=== PATIENT | male | born 1980 | race Caucasian/White ===

== ENCOUNTER 2016-04-30 17:45 | Inpatient (IN) | payer BC ==
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
[2016-04-30] MEDS ORDERED: PIPERACILLIN/TAZOB 3.375 GM/50 ML PRE-DOCKED IV ONE (18:54)
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
[2016-04-30] MEDS ORDERED: PIPERACILLIN/TAZOBACTAM 3.375 GM VIAL IVPB ONE (20:34)
[2016-04-30 20:50] LABS: PH,URINE 6.5 (4.5-8); URINE APPEARANCE Clear; URINE BILIRUBIN Negative (NEGATIVE); URINE GLUCOSE (UA) Negative (NEGATIVE); URINE KETONE Trace (NEGATIVE); URINE LEUK ESTERASE Negative (NEGATIVE); URINE NITRITE Negative (NEGATIVE); URINE UROBILINOGEN 0.2 E.U/dl (0.2-1.0)
[2016-04-30 20:51] LABS: URINE BLOOD 1+ (NEGATIVE); URINE COLOR YELLOW; URINE PROTEIN 1+ (NEGATIVE)
[2016-04-30 21:21] LABS: MCH 27.8 pg (25.7-33.7); MCHC 32.5 g/dl (32.0-35.9); MEAN CELL VOLUME 85.5 fl (80-96); MEAN PLT VOLUME 9.2 fl (7.5-11.1); PLATELET COUNT 272 K/MM3 (134-434); RDW 13.2 % (11.9-15.9); WHITE BLOOD COUNT 14.1 K/mm3 (4.0-10.0)
[2016-04-30 21:25] LABS: URINE BACTERIA FEW /hpf (NEGATIVE); URINE WBC 0-2 (3-5)
[2016-04-30] MEDS ORDERED: SODIUM CHLORIDE 1,000 ML IV STA (21:30)
[2016-04-30 21:31] LABS: ALBUMIN 3.7 g/dl (3.5-5.0); ALK PHOS 92 U/L (32-92); ANION GAP 11 (8-16); BILIRUBIN,TOTAL 0.8 mg/dl (0.2-1.0); CALCIUM 8.8 mg/dl (8.4-10.2); CO2 27 mmol/L (22-28); CREATININE 0.8 mg/dl (0.6-1.3); GLUCOSE,RANDOM 80 mg/dl (74-106); SGOT/AST 34 U/L (10-42); SGPT/ALT 31 U/L (10-40); TOT PROT 8.1 g/dl (6.4-8.3)
[2016-04-30] MEDS ORDERED: VANCOMYCIN 1,000 MG in DEXTROSE 5%-WATER - 250 ML IVPB ONE (21:31)
[2016-04-30] MEDS ORDERED: VANCOMYCIN 1,000 MG VIAL (RESTRICTED TO ID ONLY) ONE (21:39)
[2016-04-30 23:46] VITALS: BMI 42.7
[2016-04-30] MEDS ORDERED: ACETAMINOPHEN 325 MG TABLET (FP) ONE (23:55)
[2016-05-01] MEDS ORDERED: morphine CARPU-JECT 2 MG/1 ML DISP.SYRIN IVPUSH PRN (00:26)
[2016-05-01] MEDS ORDERED: ACETAMINOPHEN 650 MG SUPP.RECT PR PRN (00:26)
[2016-05-01] MEDS ORDERED: DEXTROSE 5%-0.45% SALINE 1,000 ML IV SCH (00:30)
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
[2016-05-01] MEDS: HEPARIN NA (PORCINE) 5,000 UNITS/ML 1ML VIAL SQ SCH ×3 (02:00→18:52)
[2016-05-01 09:02] LABS: BASOPHIL 0.6 % (0-2.0); EOSINOPHIL 0.8 % (0-4.5); MCH 27.5 pg (25.7-33.7); MCHC 31.9 g/dl (32.0-35.9); MEAN CELL VOLUME 86.3 fl (80-96); MEAN PLT VOLUME 8.4 fl (7.5-11.1); NEUTROPHILS 80.4 % (42.8-82.8); PLATELET COUNT 276 K/MM3 (134-434); RDW 13.3 % (11.9-15.9); WHITE BLOOD COUNT 12.9 K/mm3 (4.0-10.0)
[2016-05-01] MEDS: PANTOPRAZOLE 20 MG TABLET (FP) PO SCH ×2 (09:43→21:27)
[2016-05-01] MEDS ORDERED: MUPIROCIN 2% TOPICAL OINTMENT FOR DECOLONIZATION NS SCH ×2 (10:00)
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
[2016-05-01 11:00] LABS: INR 1.19 (0.82-1.09); PROTHROMBIN TIME (PATIENT) 13.3 SEC (10.2-13.0)
[2016-05-01] MEDS ORDERED: GENTAMICIN SO4 80 MG/2 ML VIAL ONE (11:03)
[2016-05-01] MEDS ORDERED: POLYMYXIN B SULFATE 500,000 UNIT VIAL ONE (11:03)
[2016-05-01 11:07] LABS: ACTIVATED PTT 28.2 SECONDS (24.0-38.9)
[2016-05-01] MEDS ORDERED: MIDAZOLAM HCL 2 MG/2 ML SINGLE DOSE VIAL ONE (11:17)
[2016-05-01] MEDS ORDERED: HYDROmorphone *PCA* 10MG/50ML DISP.SYRIN PCA SCH (12:00)
[2016-05-01] MEDS ORDERED: ONDANSETRON 4 MG/2 ML VIAL IVPUSH PRN (12:13)
--- NOTE | 2016-05-01 12:21 | PN ---
Progress Note (short form) - Note Progress Note: Operative note sp left thigh Irrigation and debridement pre op diag : left thigh abscess post op same Proceder Irr and cecille left thigh surgeon; Carlos Alberto Cheema PD Findings: thigh abscess with clear fluid and necrotic fat 6 liters plain saline 3 liters abx Transfered to ER See dictated op note mc
[2016-05-01] MEDS ORDERED: HYDROmorphone *PCA* 10MG/50ML DISP.SYRIN PCA ONE (12:55)
[2016-05-01] MEDS ORDERED: PROMETHAZINE HCL 25 MG/1 ML VIAL IVPUSH PRN (13:01)
[2016-05-01] MEDS ORDERED: ONDANSETRON 4 MG/2 ML VIAL ONE (13:22)
[2016-05-01] MEDS: DEXTROSE 5%-0.45% SALINE 1,000 ML IV SCH (13:25)
[2016-05-01] MEDS: LACTATED RINGERS SOLUTION 1,000 ML IV SCH ×2 (13:25→14:16)
--- NOTE | 2016-05-01 16:20 | EKG ---
Test Reason : Blood Pressure : / mmHG Vent. Rate : 084 BPM Atrial Rate : 084 BPM P-R Int : 174 ms QRS Dur : 074 ms QT Int : 334 ms P-R-T Axes : 053 036 028 degrees QTc Int : 394 ms NORMAL SINUS RHYTHM NO PREVIOUS ECGS AVAILABLE Confirmed by MD STEPHANIE, ANSLEY ([id number]) on 05/01/2016 4:20:29 PM Referred By: JOSE Confirmed By:ANSLEY BROWN MD
--- NOTE | 2016-05-01 18:06 | PN ---
Progress Note (short form) - Note Progress Note: ID Consult dictated S/P I&D R thigh abscess Obesity/ UZAIR Pending c/s, empiric vanco/ zosyn Wound c/s for AFB/ Fungal at dressing change
[2016-05-01] MEDS: VANCOMYCIN 1,250 MG in DEXTROSE 5%-WATER - 250 ML IVPB SCH (18:15)
[2016-05-01] MEDS: PIPERACILLIN/TAZOB 3.375 GM 50 ML IVPB SCH (18:24)
[2016-05-01] MEDS ORDERED: CHLORHEXIDINE GLUCONATE 4% CLEANSER FOR DECOLONIZATION TP SCH ×2 (22:00)
[2016-05-01] MEDS ORDERED: ACETAMINOPHEN 325 MG TABLET (FP) ONE (22:17)
--- NOTE | 2016-05-01 23:20 | PN ---
Progress Note, Physician Chief Complaint: s/p I&D today improved pain. 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 YASMEEN PRN Reason: Protocol Stop: 05/04/16 12:00 Last Admin: 05/01/16 13:25 Dose: 0.4 mg Lactated Ringer's (Lactated Ringers Solution) 1,000 mls @ 125 mls/hr IV ASDIR YASMEEN Last Admin: 05/01/16 13:25 Dose: 200 mls Dextrose/Sodium Chloride (D5-1/2ns -) 1,000 mls @ 80 mls/hr IV ASDIR YASMEEN Last Admin: 05/01/16 13:25 Dose: 0 mls Vancomycin HCl 1,250 mg/ (Dextrose) 250 mls @ 166.667 mls/hr IVPB Q12H YASMEEN Last Admin: 05/01/16 18:15 Dose: 166.667 mls/hr Piperacillin Sod/Tazobactam Sod (Zosyn 3.375gm Ivpb (Pre-Docked)) 50 mls @ 100 mls/hr IVPB Q8H-IV YASMEEN PRN Reason: Protocol Last Admin: 05/01/16 18:24 Dose: 100 mls/hr Pantoprazole Sodium (Protonix -) 20 mg PO BID YASMEEN Last Admin: 05/01/16 21:27 Dose: 20 mg - Objective Vital Signs: Vital Signs Temperature 100.8 F H 05/01/16 21:34 Pulse Rate 86 05/01/16 21:34 Respiratory Rate 20 05/01/16 21:34 Blood Pressure 127/68 05/01/16 21:34 O2 Sat by Pulse Oximetry (%) 98 05/01/16 20:36 Constitutional: Yes: No Distress, Calm Neck: Yes: Supple Cardiovascular: Yes: Regular Rate and Rhythm Respiratory: Yes: CTA Bilaterally Gastrointestinal: Yes: Normal Bowel Sounds, Abdomen, Obese Extremities: Yes: WNL, Other (LT thigh w wound dressing no edema) Peripheral Pulses WNL: Yes Wound/Incision: Yes: Dressing Dry and Intact Neurological: Yes: Alert, Oriented ...Motor Strength: WNL Psychiatric: Yes: Alert, Oriented Labs: CBC, BMP 05/01/16 08:20 INR, PTT INR 1.19 (0.82-1.09) 05/01/16 08:20 Problem List - Problems (1) Cellulitis and abscess of lower extremity Assessment/Plan: S/p INtraop Sx debridment afeb resting Code(s): L02.419 - CUTANEOUS ABSCESS OF LIMB, UNSPECIFIED L03.119 - CELLULITIS OF UNSPECIFIED PART OF LIMB (2) Morbid exogenous obesity Assessment/Plan: BMI 42- Manage w PCP in outpt setting. Code(s): E66.01 - MORBID (SEVERE) OBESITY DUE TO EXCESS CALORIES
[2016-05-02] MEDS: HEPARIN NA (PORCINE) 5,000 UNITS/ML 1ML VIAL SQ SCH ×3 (02:19→18:09)
[2016-05-02] MEDS: PIPERACILLIN/TAZOB 3.375 GM 50 ML IVPB SCH ×3 (02:19→18:09)
[2016-05-02] MEDS: VANCOMYCIN 1,250 MG in DEXTROSE 5%-WATER - 250 ML IVPB SCH ×2 (05:16→18:09)
[2016-05-02 08:18] LABS: BASOPHIL 0.6 % (0-2.0); MCH 27.8 pg (25.7-33.7); MEAN CELL VOLUME 86.8 fl (80-96); MEAN PLT VOLUME 7.7 fl (7.5-11.1); NEUTROPHILS 70.7 % (42.8-82.8); PLATELET COUNT 318 K/MM3 (134-434); RDW 13.4 % (11.9-15.9); WHITE BLOOD COUNT 10.1 K/mm3 (4.0-10.0)
[2016-05-02 08:25] LABS: CALCIUM 8.1 mg/dl (8.4-10.2); CREATININE 0.8 mg/dl (0.6-1.3)
[2016-05-02] MEDS ORDERED: HYDROmorphone HCL CARPU-JECT 1 MG/1 ML DISP.SYRIN ONE (08:35)
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
[2016-05-02] MEDS ORDERED: oxyCODONE HCL 5 MG TABLET PO PRN ×2 (09:21→09:22)
[2016-05-02] MEDS: ACETAMINOPHEN 325 MG TABLET (FP) PO SCH ×3 (10:50→22:05)
[2016-05-02] MEDS: traMADol HCL 50 MG TABLET PO SCH ×3 (10:50→22:04)
[2016-05-02] MEDS: MULTIVITAMINS (DAILY MVI) TABLET (FP) PO SCH (10:50)
[2016-05-02] MEDS: CELECOXIB 200 MG CAPSULE PO SCH ×2 (10:50→22:04)
[2016-05-02] MEDS: PANTOPRAZOLE 20 MG TABLET (FP) PO SCH ×2 (10:50→22:04)
[2016-05-02] MEDS: oxyCODONE HCL 10 MG SUSTAINED ACTING TABLET PO SCH ×2 (10:50→22:05)
[2016-05-02] MEDS: ASPIRIN 325 MG ENTERIC COATED TABLET (FP) PO SCH (10:51)
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
--- NOTE | 2016-05-02 15:57 | PN ---
Progress Note, Physician Chief Complaint: s/p I&D today improved pain at NRB to 92-93 - Current Medication List Current Medications: Active Medications Acetaminophen (Tylenol Suppository -) 650 mg [place] Q4H PRN PRN Reason: FEVER OR PAIN Last Admin: 04/30/16 22:00 Dose: 650 mg Acetaminophen (Tylenol -) 650 mg PO Q6H [facility] Stop: 05/05/16 09:21 Last Admin: 05/02/16 10:50 Dose: 650 mg Aspirin (Ecotrin -) 325 mg PO DAILY [facility] Last Admin: 05/02/16 10:51 Dose: 325 mg Celecoxib (Celebrex -) 200 mg PO BID [facility] Last Admin: 05/02/16 10:50 Dose: 200 mg Fentanyl (Sublimaze Injection -) 50 mcg IVPUSH [id number] PRN PRN Reason: PAIN Stop: 05/04/16 12:13 Heparin Sodium (Porcine) (Heparin -) 5,000 unit SQ Q8H-IV [facility] Last Admin: 05/02/16 10:51 Dose: 5,000 unit Lactated Ringer's (Lactated Ringers Solution) 1,000 mls @ 125 mls/hr IV ASDIR [facility] Last Admin: 05/01/16 13:25 Dose: 200 mls Dextrose/Sodium Chloride (D5-1/2ns -) 1,000 mls @ 80 mls/hr IV ASDIR [facility] Last Admin: 05/01/16 13:25 Dose: 0 mls Vancomycin HCl 1,250 mg/ (Dextrose) 250 mls @ 166.667 mls/hr IVPB Q12H [facility] Last Admin: 05/02/16 05:16 Dose: 166.667 mls/hr Piperacillin Sod/Tazobactam Sod (Zosyn 3.375gm Ivpb (Pre-Docked)) 50 mls @ 100 mls/hr IVPB Q8H-IV [facility] PRN Reason: Protocol Last Admin: 05/02/16 10:50 Dose: 100 mls/hr Multivitamins/Minerals/Vitamin C (Tab-A-Vit -) 1 tab PO DAILY [facility] Last Admin: 05/02/16 10:50 Dose: 1 tab Oxycodone HCl (Oxycontin -) 10 mg PO BID [facility] Last Admin: 05/02/16 10:50 Dose: 10 mg Oxycodone HCl (Roxicodone -) 10 mg PO Q4H PRN PRN Reason: PAIN LEVEL 6-10 Stop: 05/05/16 09:21 Oxycodone HCl (Roxicodone -) 5 mg PO Q4H PRN PRN Reason: PAIN LEVEL 1-5 Stop: 05/05/16 09:22 Pantoprazole Sodium (Protonix -) 20 mg PO BID [facility] Last Admin: 05/02/16 10:50 Dose: 20 mg Tramadol HCl (Ultram -) 50 mg PO Q6H [facility] Last Admin: 05/02/16 10:50 Dose: 50 mg - Objective Vital Signs: Vital Signs Temperature 98.8 F 05/02/16 14:59 Pulse Rate 77 05/02/16 14:59 Respiratory Rate 18 05/02/16 14:59 Blood Pressure 149/80 05/02/16 14:59 O2 Sat by Pulse Oximetry (%) 96 05/02/16 14:59 Constitutional: Yes: No Distress Neck: Yes: Supple Cardiovascular: Yes: Regular Rate and Rhythm Respiratory: Yes: Regular, CTA Bilaterally Gastrointestinal: Yes: Normal Bowel Sounds Extremities: Yes: WNL Peripheral Pulses WNL: Yes Wound/Incision: Yes: Well Approximated (no dc) Neurological: Yes: Alert, Oriented Labs: CBC, BMP 05/02/16 08:00 05/02/16 08:00 INR, PTT INR 1.19 (0.82-1.09) 05/01/16 08:20 Problem List - Problems (1) Cellulitis and abscess of lower extremity Assessment/Plan: S/p INtraop Sx debridment afeb resting; pain 3. With Intra lesion Vacc no dressing + claen w/o dc or eythema Code(s): L02.419 - CUTANEOUS ABSCESS OF LIMB, UNSPECIFIED L03.119 - CELLULITIS OF UNSPECIFIED PART OF LIMB (2) Morbid exogenous obesity Assessment/Plan: BMI 42- Manage w PCP in outpt setting. Code(s): E66.01 - MORBID (SEVERE) OBESITY DUE TO EXCESS CALORIES
[2016-05-02] MEDS: LACTATED RINGERS SOLUTION 1,000 ML IV SCH (16:45)
[2016-05-02] MEDS: DEXTROSE 5%-0.45% SALINE 1,000 ML IV SCH (16:45)
[2016-05-02] MEDS ORDERED: REFRIGERATED ANITBIOTICS ONE (17:33)
[2016-05-03] MEDS: PIPERACILLIN/TAZOB 3.375 GM 50 ML IVPB SCH ×3 (01:46→17:23)
[2016-05-03] MEDS: HEPARIN NA (PORCINE) 5,000 UNITS/ML 1ML VIAL SQ SCH ×3 (02:05→17:23)
[2016-05-03] MEDS: ACETAMINOPHEN 325 MG TABLET (FP) PO SCH ×4 (03:30→21:05)
[2016-05-03] MEDS: traMADol HCL 50 MG TABLET PO SCH ×4 (03:30→21:06)
[2016-05-03] MEDS: VANCOMYCIN 1,250 MG in DEXTROSE 5%-WATER - 250 ML IVPB SCH ×2 (06:50→18:07)
[2016-05-03 09:05] LABS: BASOPHIL 0.6 % (0-2.0); EOSINOPHIL 5.7 % (0-4.5); MCH 28.1 pg (25.7-33.7); MCHC 32.2 g/dl (32.0-35.9); MEAN CELL VOLUME 87.2 fl (80-96); MEAN PLT VOLUME 8.5 fl (7.5-11.1); NEUTROPHILS 65.2 % (42.8-82.8); PLATELET COUNT 241 K/MM3 (134-434); RDW 13.5 % (11.9-15.9); WHITE BLOOD COUNT 7.8 K/mm3 (4.0-10.0)
[2016-05-03] MEDS: CELECOXIB 200 MG CAPSULE PO SCH ×2 (09:50→21:08)
[2016-05-03] MEDS: oxyCODONE HCL 10 MG SUSTAINED ACTING TABLET PO SCH ×2 (09:50→21:05)
[2016-05-03] MEDS: ASPIRIN 325 MG ENTERIC COATED TABLET (FP) PO SCH (09:51)
[2016-05-03] MEDS: PANTOPRAZOLE 20 MG TABLET (FP) PO SCH ×2 (09:52→21:08)
[2016-05-03] MEDS: MULTIVITAMINS (DAILY MVI) TABLET (FP) PO SCH (09:52)
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
[2016-05-03] MEDS ORDERED: ONDANSETRON 4 MG TABLET PO PRN (16:36)
[2016-05-04] MEDS: HEPARIN NA (PORCINE) 5,000 UNITS/ML 1ML VIAL SQ SCH ×3 (01:21→17:40)
[2016-05-04] MEDS: PIPERACILLIN/TAZOB 3.375 GM 50 ML IVPB SCH ×2 (01:21→09:31)
[2016-05-04] MEDS: ACETAMINOPHEN 325 MG TABLET (FP) PO SCH ×4 (03:30→21:37)
[2016-05-04] MEDS: traMADol HCL 50 MG TABLET PO SCH ×4 (03:30→21:37)
[2016-05-04] MEDS ORDERED: REFRIGERATED ANITBIOTICS ONE (06:02)
[2016-05-04] MEDS ORDERED: PT OWN MED DRAWER 7, Y5N ONE (06:03)
[2016-05-04] MEDS: VANCOMYCIN 1,250 MG in DEXTROSE 5%-WATER - 250 ML IVPB SCH ×2 (06:20→17:40)
[2016-05-04] MEDS: PANTOPRAZOLE 20 MG TABLET (FP) PO SCH ×2 (09:28→21:38)
[2016-05-04] MEDS: MULTIVITAMINS (DAILY MVI) TABLET (FP) PO SCH (09:28)
[2016-05-04] MEDS: oxyCODONE HCL 10 MG SUSTAINED ACTING TABLET PO SCH ×2 (09:29→21:38)
[2016-05-04] MEDS: ASPIRIN 325 MG ENTERIC COATED TABLET (FP) PO SCH (09:29)
[2016-05-04] MEDS: CELECOXIB 200 MG CAPSULE PO SCH ×2 (09:30→21:38)
--- NOTE | 2016-05-04 09:34 | PN ---
Progress Note, Physician History of Present Illness: No c/o leg pain No fever/ chills Tolerating antibiotics Temps down- afebrile WBC improved Blood, wound c/s no growth - Current Medication List Current Medications: Active Medications Acetaminophen (Tylenol Suppository -) 650 mg [place] Q4H PRN PRN Reason: FEVER OR PAIN Last Admin: 04/30/16 22:00 Dose: 650 mg Acetaminophen (Tylenol -) 650 mg PO Q6H [facility] Stop: 05/05/16 09:21 Last Admin: 05/04/16 03:30 Dose: Not Given Aspirin (Ecotrin -) 325 mg PO DAILY [facility] Last Admin: 05/03/16 09:51 Dose: 325 mg Celecoxib (Celebrex -) 200 mg PO BID [facility] Last Admin: 05/03/16 21:08 Dose: 200 mg Heparin Sodium (Porcine) (Heparin -) 5,000 unit SQ Q8H-IV [facility] Last Admin: 05/04/16 01:21 Dose: 5,000 unit Lactated Ringer's (Lactated Ringers Solution) 1,000 mls @ 125 mls/hr IV ASDIR [facility] Last Admin: 05/02/16 16:45 Dose: Not Given Dextrose/Sodium Chloride (D5-1/2ns -) 1,000 mls @ 80 mls/hr IV ASDIR [facility] Last Admin: 05/02/16 16:45 Dose: Not Given Vancomycin HCl 1,250 mg/ (Dextrose) 250 mls @ 166.667 mls/hr IVPB Q12H [facility] Last Admin: 05/04/16 06:20 Dose: 166.667 mls/hr Piperacillin Sod/Tazobactam Sod (Zosyn 3.375gm Ivpb (Pre-Docked)) 50 mls @ 100 mls/hr IVPB Q8H-IV [facility] PRN Reason: Protocol Last Admin: 05/04/16 01:21 Dose: 100 mls/hr Multivitamins/Minerals/Vitamin C (Tab-A-Vit -) 1 tab PO DAILY [facility] Last Admin: 05/03/16 09:52 Dose: 1 tab Ondansetron HCl (Zofran -) 8 mg PO Q8H PRN PRN Reason: NAUSEA Oxycodone HCl (Oxycontin -) 10 mg PO BID [facility] Last Admin: 02/19/17 21:05 Dose: 10 mg Oxycodone HCl (Roxicodone -) 10 mg PO Q4H PRN PRN Reason: PAIN LEVEL 6-10 Stop: 05/05/16 09:21 Oxycodone HCl (Roxicodone -) 5 mg PO Q4H PRN PRN Reason: PAIN LEVEL 1-5 Stop: 05/05/16 09:22 Pantoprazole Sodium (Protonix -) 20 mg PO BID [facility] Last Admin: 05/03/16 21:08 Dose: 20 mg Tramadol HCl (Ultram -) 50 mg PO Q6H [facility] Last Admin: 05/04/16 03:30 Dose: Not Given - Objective Vital Signs: Vital Signs Temperature 98.3 F 05/04/16 06:00 Pulse Rate 56 L 05/04/16 06:00 Respiratory Rate 19 05/04/16 08:02 Blood Pressure 102/62 05/04/16 06:00 O2 Sat by Pulse Oximetry (%) 97 05/04/16 08:02 Constitutional: Yes: No Distress, Obese Cardiovascular: Yes: Regular Rate and Rhythm, S1, S2 Respiratory: Yes: CTA Bilaterally Gastrointestinal: Yes: Normal Bowel Sounds, Soft, Abdomen, Obese. No: Tenderness Extremities: Yes: Other (VAC in place, L medial thigh wound + slight induration / erythema/ warmth surrounding skin) Labs: CBC, BMP 05/02/16 08:00 INR, PTT INR 1.19 (0.82-1.09) 05/01/16 08:20 Assessment/Plan S/P I&D L medial thigh collection Cellulitis L LE Fever/ leukocytosis- improved Cultures negative; results may have been affected by prior antibiotic therapy When cleared for discharge by surgery, substitute Augmentin 875mg po bid x 7d
[2016-05-04 09:49] LABS: BASOPHIL 0.6 % (0-2.0); EOSINOPHIL 6.5 % (0-4.5); MCH 28.4 pg (25.7-33.7); MCHC 32.6 g/dl (32.0-35.9); MEAN PLT VOLUME 7.9 fl (7.5-11.1); NEUTROPHILS 61.3 % (42.8-82.8); PLATELET COUNT 387 K/MM3 (134-434); RDW 13.2 % (11.9-15.9); WHITE BLOOD COUNT 6.5 K/mm3 (4.0-10.0)
--- NOTE | 2016-05-04 15:39 | PN ---
Progress Note, Physician Chief Complaint: minimal local pain in area of wound History of Present Illness: tolerating ambulation. - Current Medication List Current Medications: Active Medications Acetaminophen (Tylenol Suppository -) 650 mg [place] Q4H PRN PRN Reason: FEVER OR PAIN Last Admin: 04/30/16 22:00 Dose: 650 mg Acetaminophen (Tylenol -) 650 mg PO Q6H [facility] Stop: 05/05/16 09:21 Last Admin: 05/04/16 15:09 Dose: 650 mg Aspirin (Ecotrin -) 325 mg PO DAILY [facility] Last Admin: 05/04/16 09:29 Dose: 325 mg Celecoxib (Celebrex -) 200 mg PO BID [facility] Last Admin: 05/04/16 09:30 Dose: 200 mg Heparin Sodium (Porcine) (Heparin -) 5,000 unit SQ Q8H-IV [facility] Last Admin: 05/04/16 09:30 Dose: 5,000 unit Lactated Ringer's (Lactated Ringers Solution) 1,000 mls @ 125 mls/hr IV ASDIR [facility] Last Admin: 05/02/16 16:45 Dose: Not Given Dextrose/Sodium Chloride (D5-1/2ns -) 1,000 mls @ 80 mls/hr IV ASDIR [facility] Last Admin: 05/02/16 16:45 Dose: Not Given Vancomycin HCl 1,250 mg/ (Dextrose) 250 mls @ 166.667 mls/hr IVPB Q12H [facility] Last Admin: 05/04/16 06:20 Dose: 166.667 mls/hr Piperacillin Sod/Tazobactam Sod (Zosyn 3.375gm Ivpb (Pre-Docked)) 50 mls @ 100 mls/hr IVPB Q8H-IV [facility] PRN Reason: Protocol Last Admin: 05/04/16 09:31 Dose: 100 mls/hr Multivitamins/Minerals/Vitamin C (Tab-A-Vit -) 1 tab PO DAILY [facility] Last Admin: 05/04/16 09:28 Dose: 1 tab Ondansetron HCl (Zofran -) 8 mg PO Q8H PRN PRN Reason: NAUSEA Oxycodone HCl (Oxycontin -) 10 mg PO BID [facility] Last Admin: 05/04/16 09:29 Dose: 10 mg Oxycodone HCl (Roxicodone -) 10 mg PO Q4H PRN PRN Reason: PAIN LEVEL 6-10 Stop: 05/05/16 09:21 Oxycodone HCl (Roxicodone -) 5 mg PO Q4H PRN PRN Reason: PAIN LEVEL 1-5 Stop: 05/05/16 09:22 Pantoprazole Sodium (Protonix -) 20 mg PO BID [facility] Last Admin: 05/04/16 09:28 Dose: 20 mg Tramadol HCl (Ultram -) 50 mg PO Q6H [facility] Last Admin: 05/04/16 15:08 Dose: 50 mg - Objective Vital Signs: Vital Signs Temperature 97.8 F 05/04/16 14:10 Pulse Rate 62 05/04/16 14:10 Respiratory Rate 18 05/04/16 14:10 Blood Pressure 122/71 05/04/16 14:10 O2 Sat by Pulse Oximetry (%) 97 05/04/16 14:10 Constitutional: Yes: No Distress, Calm Cardiovascular: Yes: Regular Rate and Rhythm Respiratory: Yes: CTA Bilaterally Gastrointestinal: Yes: Normal Bowel Sounds, Abdomen, Obese Musculoskeletal: Yes: WNL Extremities: Yes: WNL Edema: No Peripheral Pulses WNL: Yes Wound/Incision: Yes: Clean/Dry, Well Approximated, Other (vacc in place) Neurological: Yes: Alert, Oriented ...Motor Strength: WNL Psychiatric: Yes: WNL, Alert, Oriented Labs: CBC, BMP 05/04/16 07:33 05/02/16 08:00 INR, PTT INR 1.19 (0.82-1.09) 05/01/16 08:20 Laboratory Last Values WBC 6.5 K/mm3 (4.0-10.0) 05/04/16 07:33 RBC 4.06 M/mm3 (4.00-5.60) 05/04/16 07:33 Hgb 11.5 GM/dl (11.7-16.9) L 05/04/16 07:33 Hct 35.4 % (35.4-49) 05/04/16 07:33 MCV 87.0 fl (80-96) 05/04/16 07:33 MCHC 32.6 g/dl (32.0-35.9) 05/04/16 07:33 RDW 13.2 % (11.9-15.9) 05/04/16 07:33 Plt Count 387 K/MM3 (134-434) D 05/04/16 07:33 MPV 7.9 fl (7.5-11.1) 05/04/16 07:33 Neutrophils % 61.3 % (42.8-82.8) 05/04/16 07:33 Lymphocytes % 23.6 % (8-40) D 05/04/16 07:33 Monocytes % 8.0 % (3.8-10.2) 05/04/16 07:33 Eosinophils % 6.5 % (0-4.5) H 05/04/16 07:33 Basophils % 0.6 % (0-2.0) 05/04/16 07:33 Band Neutrophils 1.0 % (0-10) 04/30/16 19:16 INR 1.19 (0.82-1.09) 05/01/16 08:20 PTT (Actin FS) 28.2 SECONDS (24.0-38.9) 05/01/16 08:20 Sodium 137 mmol/L (136-145) 05/02/16 08:00 Potassium 3.9 mmol/L (3.5-5.1) 05/02/16 08:00 Chloride 102 mmol/L (98-107) 05/02/16 08:00 Carbon Dioxide 28 mmol/L (22-28) 05/02/16 08:00 Anion Gap 7 (8-16) L 05/02/16 08:00 BUN 9 mg/dl (7-18) 05/02/16 08:00 Creatinine 0.8 mg/dl (0.6-1.3) 05/02/16 08:00 Creat Clearance w eGFR > 60 (>60) 04/30/16 19:16 Random Glucose 105 mg/dl (74-106) D 05/02/16 08:00 Hemoglobin A1c % 5.5 % (4.8-6.0) 05/02/16 06:00 Lactic Acid 1.153 mmol/L (0.4-2.0) 04/30/16 20:05 Calcium 8.1 mg/dl (8.4-10.2) L 05/02/16 08:00 Total Bilirubin 0.8 mg/dl (0.2-1.0) 04/30/16 19:16 AST 34 U/L (10-42) 04/30/16 19:16 ALT 31 U/L (10-40) 04/30/16 19:16 Alkaline Phosphatase 92 U/L (32-92) 04/30/16 19:16 Total Protein 8.1 g/dl (6.4-8.3) 04/30/16 19:16 Albumin 3.7 g/dl (3.5-5.0) 04/30/16 19:16 Urine Color Yellow 04/30/16 20:00 Urine Appearance Clear 04/30/16 20:00 Urine pH 6.5 (4.5-8) 04/30/16 20:00 Ur Specific [place] 1.015 (1.005-1.025) 04/30/16 20:00 Urine Protein 1+ (NEGATIVE) H 04/30/16 20:00 Urine Glucose (UA) Negative (NEGATIVE) 04/30/16 20:00 Urine Ketones Trace (NEGATIVE) 04/30/16 20:00 Urine Blood 1+ (NEGATIVE) H 04/30/16 20:00 Urine Nitrite Negative (NEGATIVE) 04/30/16 20:00 Urine Bilirubin Negative (NEGATIVE) 04/30/16 20:00 Urine Urobilinogen 0.2 e.u/dl (0.2-1.0) 04/30/16 20:00 Ur Leukocyte Esterase Negative (NEGATIVE) 04/30/16 20:00 Urine RBC 2-4 /hpf (0-3) 04/30/16 20:00 Urine WBC 0-2 (3-5) 04/30/16 20:00 Urine Bacteria Few /hpf (NEGATIVE) 04/30/16 20:00 Vancomycin Trough 6.102 ug/ml (5.0-10.0) 05/03/16 06:00 04/30 BCS x 2 NEG x 72 hrs 05/01 Body Fluid CS -> Aerob X 2 NEG x 48 Hrs / Anaer x 2 NEG 05/01 Wound CS -> Aerob x 2 NEG x 48 hr / Anaero x 2 NEG 05/04 WBC 6.5 Problem List - Problems (1) Cellulitis and abscess of lower extremity Assessment/Plan: S/p INtraop Sx debridment (05/01); afeb since 05/01 ;resting pain 2-3. With Intra lesion Vacc no dressing + clean w/o dc or eythema. ALL Cultures NEG ; As per ID pt Might be dc from hospital w Augmetin 875 BID x 7 days. s/p wound vacc change today next time on wednesday05/06/16- CAN be done outpt (subacute VS Home w VNS/ DOMS - per Insurance) -> [employer]acker Consult requetesd. DW pt and . Agreed w plan. Code(s): L02.419 - CUTANEOUS ABSCESS OF LIMB, UNSPECIFIED L03.119 - CELLULITIS OF UNSPECIFIED PART OF LIMB (2) Morbid exogenous obesity Assessment/Plan: BMI 42- Manage w PCP in outpt setting. Code(s): E66.01 - MORBID (SEVERE) OBESITY DUE TO EXCESS CALORIES (3) Discharge planning issues Assessment/Plan: employment case manager consult requested-> SEE Above note. Code(s): Z02.9 - ENCOUNTER FOR ADMINISTRATIVE EXAMINATIONS, UNSPECIFIED
--- NOTE | 2016-05-04 15:54 | PN ---
Progress Note (short form) - Note Progress Note: Pt seen and examined. Comfortable. No complaints. VAC changed today - pt tolerated well. AVSS Selected Entries 05/04/16 14:10 Temperature 97.8 F Pulse Rate 62 Respiratory 18 Rate Blood Pressure 122/71 O2 Sat by Pulse 97 Oximetry (%) Laboratory Tests 05/02/16 05/04/16 08:00 07:33 WBC 6.5 Hgb 11.5 L Hct 35.4 Plt Count 387 D Neutrophils % 61.3 Sodium 137 Potassium 3.9 Chloride 102 Carbon Dioxide 28 Anion Gap 7 L BUN 9 Creatinine 0.8 Random Glucose 105 D Calcium 8.1 L Gen: NAD LLE: VAC changed, wound bed clean with no active drainage. Cellulitis appears resolved. Swelling down. NVID A/P 35yo male POD#3 s/p I&D L thigh abscess 1. VAC changes M/W/F - will need VNS 2. OK to d/c home with VNS for VAC changes. 3. PO augmentin as per ID 4. OK to d/c home - F/U with Dr. Cheema in 7-10 days after discharge for wound check and suture removal.
[2016-05-05] MEDS: HEPARIN NA (PORCINE) 5,000 UNITS/ML 1ML VIAL SQ SCH ×2 (02:45→09:16)
[2016-05-05] MEDS: ACETAMINOPHEN 325 MG TABLET (FP) PO SCH (02:45)
[2016-05-05] MEDS: traMADol HCL 50 MG TABLET PO SCH ×3 (02:47→15:40)
[2016-05-05] MEDS ORDERED: REFRIGERATED ANITBIOTICS ONE (06:05)
[2016-05-05] MEDS: VANCOMYCIN 1,250 MG in DEXTROSE 5%-WATER - 250 ML IVPB SCH (06:09)
[2016-05-05] MEDS ORDERED: AMOX TR/POT CLAV 875MG/125MG TABLETS (FP) PO SCH (08:30)
[2016-05-05 08:50] LABS: BASOPHIL 0.6 % (0-2.0); MCH 27.2 pg (25.7-33.7); MCHC 31.7 g/dl (32.0-35.9); MEAN CELL VOLUME 85.8 fl (80-96); MEAN PLT VOLUME 7.7 fl (7.5-11.1); NEUTROPHILS 66.4 % (42.8-82.8); PLATELET COUNT 432 K/MM3 (134-434); RDW 13.3 % (11.9-15.9); WHITE BLOOD COUNT 5.8 K/mm3 (4.0-10.0)
[2016-05-05] MEDS: MULTIVITAMINS (DAILY MVI) TABLET (FP) PO SCH (09:16)
[2016-05-05] MEDS: CELECOXIB 200 MG CAPSULE PO SCH (09:17)
[2016-05-05] MEDS: ASPIRIN 325 MG ENTERIC COATED TABLET (FP) PO SCH (09:18)
[2016-05-05] MEDS: oxyCODONE HCL 10 MG SUSTAINED ACTING TABLET PO SCH (09:18)
[2016-05-05] MEDS: PANTOPRAZOLE 20 MG TABLET (FP) PO SCH (09:18)
[2016-05-05] MEDS ORDERED: LACTOBACILLUS ACIDOPHILUS 1 EACH TAB (FP) PO SCH (10:00)
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
[2016-05-05 14:05] VITALS: BP 119/72; PULSE 56; TEMP 98.3
--- NOTE | 2016-05-10 22:46 | OP ---
DATE OF OPERATION: 05/01/2016 SURGEON: Chidi Flores M.D. TRACK CAR OPERATOR: Louis Barbosa PREOPERATIVE DIAGNOSIS: Left thigh abscess. POSTOPERATIVE DIAGNOSIS: Left thigh abscess. PROCEDURE: Irrigation and debridement, left thigh. PROCEDURE: Informed consent was obtained. Left lower extremity was prepped and draped in sterile fashion. Tourniquet was placed on the upper leg but not inflated. Patient had previous traumatic laceration. CT scan identified a cystic fluid which was palpable. The inferior medial portion of the patient's traumatic incision was opened, and the area of fluid was identified. Fluid was sent as well as a number of samples for culture and identification. After this irrigation included 6 L of plain saline. A curet was used along the edges of the fluid filled sac, and a hemostat was used to break up all the adhesions. There were areas of necrotic fat, which was debrided as well as sent to pathology. After 6 L of plain saline irrigation, 6 L of antibiotic irrigation were then used. The wound was then packed with Ioban gauze and closed with number 2 nylon suture. I left opening for removal of the gauze. Sterile dressing was placed. The patient transferred to recovery room without complications. CHIDI FLORES M.D. [id number]
== END 2016-05-05 17:45 | disposition home health service (06) | DRG 580 ==
LOC: FER 17:45 → FM/S 21:52
PROC: 0JDM0ZZ Extraction of Left Upper Leg Subcutaneous Tissue and Fascia, Open Approach (ICD-10-PCS; 2016-05-01)
PROC: 0J9M0ZZ Drainage of Left Upper Leg Subcutaneous Tissue and Fascia, Open Approach (ICD-10-PCS; principal; 2016-05-01 10:30)
DX: L02.416 Cutaneous abscess of left lower limb (principal); Z68.41 Body mass index [BMI] 40.0-44.9, adult; L03.116 Cellulitis of left lower limb; G47.30 Sleep apnea, unspecified; E66.01 Morbid (severe) obesity due to excess calories; Z71.3 Dietary counseling and surveillance
CPT/HCPCS: 36415; 71010-TC; 73552-TC-LT; 73700-TC-RT; 80048; 80053; 81003; 81015; 83036; 83605; 85025; 85610; 85730; 87040; 87070; 87075; 87086; 87102; 87116; 87205; 87206; 87210; 93005; 94760; 99284-25; G0480; J1644